=== PATIENT | male | born 1960 | race Caucasian/White ===

== ENCOUNTER 2018-03-05 01:34 | Emergency (ER) | payer OTHER ==
[2018-03-05 01:43] VITALS: BP 137/69
--- NOTE | 2018-03-05 01:49 | ED Physician Documentation ---
History of Present Illness - Stated complaint Stated Complaint: FIT FOR CONFINEMENT - Chief complaint Chief Complaint: General - History obtained from History obtained from: Patient, Police - Additonal information Additional information: 58-year-old male was brought to the emergency department for evaluation by police. The patient has no medical complaints or reports of trauma. Police request evaluation before incarceration. The patient denies injury to his head , neck, torso, extremities. The patient denies any acute medical complaint. The patient ambulated into the emergency department on his own accord and had a steady gait. Currently no symptoms Review of Systems Constitutional: denies: Fever, Chills Eyes: denies: Loss of vision Ears: denies: Ear pain Nose: denies: Congestion Throat: denies: Sore throat Cardiac: denies: Chest pain / pressure Respiratory: denies: Dyspnea GI: denies: Abdominal Pain Skin: denies: Laceration (s) Musculoskeletal: denies: Neck pain PD PAST MEDICAL HISTORY - Past Medical History Past Medical History: Yes Endocrine/Autoimmune: Type 2 diabetes - Present Medications Home Medications: Ambulatory Orders Medication Instructions Recorded Confirmed Omeprazole [PriLOSEC] 1 tab PO DAILY 03/05/18 03/05/18 metFORMIN [Glucophage] 1 tab PO DAILY 03/05/18 03/05/18 - Allergies Allergies/Adverse Reactions: Allergies Allergy/AdvReac Type Severity Reaction Status Date / Time No Known Drug Allergies Allergy Verified 03/05/18 01:43 - Social History Does the pt smoke?: Yes Smoking Status: Current every day smoker PD ED PE NORMAL - General General: Alert and oriented X 3, No acute distress - HEENT HEENT: Atraumatic, PERRL, EOMI - Neck Neck: No bony TTP - Cardiac Cardiac: RRR, Strong equal pulses - Abdomen Abdomen: Soft, Non tender - Derm Derm: Normal color - Extremities Extremities: No deformity, Normal ROM s pain - Neuro Neuro: Alert and oriented X 3, No motor deficit - Psych Psych: Normal affect Results - Vitals Vitals: Vital Signs - 24 hr 03/05/18 01:35 Temperature 36.8 C Heart Rate 68 Respiratory 16 Rate Blood Pressure 137/69 H O2 Saturation 99 Oxygen O2 Source Room air PD MEDICAL DECISION MAKING - ED course ED course: The patient has no acute medical complaints, the patient has no reports of trauma and on physical exam there is no evidence of trauma. Presently the patient appears appropriate for incarceration. I advised follow-up with primary care. I discussed warning signs and recommended returning to the emergency department immediately for worsening or any concerns - Sepsis Event Vital Signs: Vital Signs - 24 hr 03/05/18 01:35 Temperature 36.8 C Heart Rate 68 Respiratory 16 Rate Blood Pressure 137/69 H O2 Saturation 99 Oxygen O2 Source Room air Departure - Departure Disposition: Home, Self Care Clinical Impression: Encounter for medical screening examination Condition: Good Instructions: Alcoholism, Alcoholism Get Help, Addiction Alcohol Comments: Please return to the emergency department for worsening symptoms or any concerns. Please follow-up with primary care for recheck
== END 2018-03-05 02:10 | disposition home or self-care (01) ==
LOC: ED 01:34
DX: Z02.89 Encounter for other administrative examinations (principal); E11.9 Type 2 diabetes mellitus without complications; F17.200 Nicotine dependence, unspecified, uncomplicated
CPT/HCPCS: 36415; 99282